=== PATIENT | male | born 1990 | race Two or more races ===

== ENCOUNTER 2024-10-05 10:39 | Emergency (ER) | payer MEDICAID, SELFPAY ==
[2024-10-05 10:40] VITALS: BMI 37.5
[2024-10-05 10:50] VITALS: BP 126/77; PULSE 74; RESP 19; TEMP 37.3; O2SAT 99
--- NOTE | 2024-10-05 10:56 | XR_ITS ---
Examination: PA lateral chest 2 views TECHNIQUE: Upright PA lateral chest 2 views Exam date and time: October 05, 2024 1105 hours Comparison August 18, 2022 INDICATIONS: Chest pain coughing today FINDINGS: Normal heart size Lungs are clear. The osseous structures are intact IMPRESSION: No active disease
--- NOTE | 2024-10-05 11:56 | EDNOTE_ITS ---
<Statement entered by Megan Billingsley MD - 10/13/24 16:19> As co-signing physician, I was present and available for consult prn. I concur with the plan and care as documented by the midlevel provider. Upper Respiratory Inf. RME/HPI General Chief Complaint: Flu Like Symptoms Stated Complaint: I THINK I HAVE BRONCHITIS Time Seen by Provider: 10/05/24 10:50 Arrival date/time: 10/05/24 10:39 34-year-old male with no significant medical problems presents to the emergency department today complaints of cough, congestion, body aches and fever patient for symptoms ongoing for the last couple of days patient does report positive sick contacts Limitations: no limitations Related Data Previous Rx's ?Medication ?Instructions ?Recorded albuterol sulfate 90 mcg/actuation 2 inh inhalation Q4H PRN shortness 08/18/22 aerosol inhaler (ProAir HFA) of breath or wheezing #8.5 grams codeine 10 mg-guaifenesin 200 mg/5 5 ml PO Q6H PRN cough #118 mL 08/18/22 mL oral liquid promethazine-DM 6.25 mg-15 mg/5 mL 5 ml PO Q6H PRN cough #473 mL 08/18/22 oral syrup albuterol sulfate 90 mcg/actuation 2 puff inhalation Q6H PRN 10/05/24 aerosol inhaler (Ventolin HFA) shortness of breath or wheezing #8.5 grams benzonatate 100 mg capsule 100 mg PO TID #14 caps 10/05/24 ibuprofen 800 mg tablet 800 mg PO TID PRN pain #30 tabs 10/05/24 Allergies Allergy/AdvReac Type Severity Reaction Status Date / Time No Known Allergies Allergy Verified 10/05/24 10:43 Review of Systems Review of Systems Systems Reviewed: All systems reviewed, normal except as documented Constitutional Constitutional: Reports system reviewed and no additional complaints, except as documented, Reports body ache(s), Reports chills, Reports fever(s) and Reports headache(s) Eyes Eyes: Reports system reviewed and no additional complaints, except as documented and Denies blurry vision ENT Ears, Nose, Mouth, and Throat: Reports system reviewed and no additional complaints, except as documented, Reports headache(s), Reports nasal congestion and Reports nasal discharge Cardiovascular Cardiovascular: Reports system reviewed and no additional complaints, except as documented, Denies chest pain and Denies dyspnea Respiratory Respiratory: Reports system reviewed and no additional complaints, except as documented, Denies chest congestion, Denies cough and Denies dyspnea Gastrointestinal Gastrointestinal: Reports system reviewed and no additional complaints, except as documented and Denies abdominal pain Integumentary/Breasts Skin/Breast: Reports system reviewed and no additional complaints, except as documented and Denies rash Neurologic Neurologic: Reports system reviewed and no additional complaints, except as documented, Reports as per HPI and Reports headache(s) Past Medical History Past Medical History NEUROLOGIC: Negative Neurological Disorders CARDIAC: Negative Cardiac Disorders ED Exam General Limitations: Present no limitations General appearance: Present alert and in no apparent distress Head Head exam: Present atraumatic Eye Eye exam: Present normal appearance, PERRL and EOMI; Absent conjunctival injection ENT ENT exam: Present normal exam, normal oropharynx and mucous membranes moist Neck Neck exam: Present normal inspection, full ROM and trachea midline Chest Chest inspection: Present normal inspection and symmetric chest wall rise Respiratory Respiratory exam: Present normal lung sounds bilaterally; Absent respiratory distress Cardiovascular Cardiovascular exam: Present regular rate, normal rhythm and normal heart sounds Abdominal Exam Abdominal exam: Present soft and normal bowel sounds; Absent distention, tenderness, guarding, rebound or rigidity Extremities Exam Extremities exam: Present normal inspection and full ROM Back Exam Back exam: Present normal inspection and full ROM Neurological Exam Neurological exam: Present alert, oriented X3, CN II-XII intact, normal gait and reflexes normal; Absent motor sensory deficit Psychiatric Psychiatric exam: Present normal affect and normal mood Skin Skin exam: Present warm, dry, intact and normal color; Absent rash Course Quality Measures none Orders Category Date Time Status Bedside Influenza A&B Antigen Test NOW Care 10/05/24 10:51 Completed XR chest 2V Stat Exams 10/05/24 10:56 Completed Vital Signs Vital signs: Vital Signs Temperature 99.1 F 10/05/24 10:50 Pulse Rate 74 10/05/24 10:50 Respiratory Rate 19 10/05/24 10:50 Blood Pressure 126/77 10/05/24 10:50 Pulse Oximetry (%) 99 10/05/24 10:50 Oxygen Delivery Method Room Air 10/05/24 10:50 O2 saturation 99% room air within normal limits Upper Respiratory Infection MDM Narrative MDM Narrative:: 34-year-old male with no significant medical problems presents to the emergency department today complaints of cough, congestion, body aches and fever patient for symptoms ongoing for the last couple of days patient does report positive sick contacts On exam patient well-appearing patient does not appear ill or toxic in no acute distress Patient checked for the flu which came back positive as suspected Chest x-ray obtained no acute pneumonic infiltrates noted Patient discharged home in no distress to follow-up with primary care doctor in the next 24 to 48 hours and for any worsening symptoms to return to the ER immediately Patient data External records reviewed:: [facility] previous records Clinical information provided by:: patient Social determinants that could affect healthcare access:: none Patient has the following chronic illnesses:: None How is presenting disease/condition affected by chronic disease/condition?: no chronic disease Evaluation data The following diagnostics were reviewed and interpreted by me:: lab results and radiology exam(s) Lab and/or radiology exams considered but not ordered:: Labs and radiology obtain Interpretation Summary: Reviewed by me Medications / Prescriptions Medications or Prescriptions considered but not ordered:: Given Medication administrations:: Given Consultations Consultation(s) initiated? (list below): No Diagnosis Upper Respiratory Differential Diagnosis: upper respiratory infection, sinusitis, viral infection, bronchitis and pharyngitis Most likely diagnosis given after review of the tests above:: Influenza Admission Indicated Admission indicated?: not indicated Admission Request Was there a request for admission?: No Disposition Plan Disposition Plan: Discharge Discharge Attestation Discharge Attestation: The patient and all family members were given an opportunity to ask questions and understood the discharge instructions. Discharge instructions specifically effects, indications for sooner follow up or return to the emergency department, and the expected course of current diagnosis. Patient condition: Stable Discharge Plan Plan Patient Disposition: HOME (Self Care) Disposition Comment: Stable Prescriptions/Referrals Prescriptions/Med Rec: New benzonatate 100 mg capsule 100 mg PO TID Qty: 14 0RF ibuprofen 800 mg tablet 800 mg PO TID PRN (Reason: pain) Qty: 30 0RF albuterol sulfate [Ventolin HFA] 90 mcg/actuation HFA aerosol inhaler 2 puff inhalation Q6H PRN (Reason: shortness of breath or wheezing) Qty: 8.5 0RF No Action codeine-guaifenesin 10-200 mg/5 mL liquid 5 ml PO Q6H PRN (Reason: cough) Qty: 118 0RF albuterol sulfate [ProAir HFA] 90 mcg/actuation HFA aerosol inhaler 2 inh inhalation Q4H PRN (Reason: shortness of breath or wheezing) Qty: 8.5 0RF promethazine-DM 6.25-15 mg/5 mL syrup 5 ml PO Q6H PRN (Reason: cough) Qty: 473 0RF Problem List Clinical Impression: Flu Patient/Caregiver Discharge Instructions Education Materials: ED URI, Viral, No Abx (Adult) Additional Instructions: Please follow up with your primary care doctor in the next 24-48hrs for any worsening symptoms return here immediately Print Language: [place] Stand Alone Forms: Betsy Award Info., Work/School Release, Patient Portal Info Letter PA/DRYWALL HANGER FRAMER Supervising Physician PA/DRYWALL HANGER FRAMER Supervising Physician: Dr BILLINGSLEY
== END 2024-10-05 12:05 | disposition home or self-care (01) ==
LOC: SERX 13:21
PROVIDERS: Emergency Provider Emergency Medicine
DX: J11.1 Influenza due to unidentified influenza virus with other respiratory manifestations (principal)
CPT/HCPCS: 71046; 87400; 99283

== ENCOUNTER → 2025-02-01 | Outpatient (CLI) | payer MEDICAID, SELFPAY ==
--- NOTE | 2025-02-01 16:05 | XR_ITS ---
Examination: CT soft tissue neck, without intravenous contrast. 2-D coronal reconstructions. 2-D sagittal reconstructions. Date and time of exam :February 01, 2025 1648 hours INDICATIONS: Right facial and ear pain and headache 2 weeks. CTDI: vol (mGy):15.4 DLP: (mGycm):410 Technique: 1.25 mm axial sections of the neck of the obtained. Coronal and sagittal reconstructions have been obtained. I Low dose protocols were performed. One or more of the following dose reduction techniques were used; automated exposure control, adjustment of the mA and/or KV according to patient size, use of iterative reconstruction technique. Findings: Symmetrical optic globes Acute right maxillary sinusitis Symmetrical nasopharynx oropharynx Symmetrical parotid and submandibular glands No pathologic lymphadenopathy Negative for mastoiditis Symmetrical internal auditory canals Negative for otitis media or otitis externa Normal epiglottis IMPRESSION: Acute right maxillary sinusitis Negative for mastoiditis Negative for otitis media, negative for otitis externa
--- NOTE | 2025-02-01 16:05 | XR_ITS ---
Examination: CT brain head without contrast. 2-D sagittal coronal reconstructions Date and time of exam:February 01, 2025 1648 hours INDICATIONS: Right ear and lateral mastoid pain and head pain beginning 2 weeks ago CTDI: vol (mGy):51.96 DLP: (mGycm):1106 Technique: Multiple CT axial sections of the brain have been obtained, 5 mm slice thickness. Contrast has not been administered. 2-D sagittal, coronal reconstructions have been obtained Low dose protocols were performed. One or more of the following dose reduction techniques were used; automated exposure control, adjustment of the mA and/or KV according to patient size, use of iterative reconstruction technique. Findings: No significant ventricular enlargement. Intra-axial or extra-axial hemorrhage density is not seen. No mass effect or midline shift Basal cisterns are not remarkable. Fourth ventricle is midline. Cranial vault intact. Impression: Negative for acute hemorrhage, mass effect or midline shift Acute right maxillary sinusitis Negative for acute mastoiditis Negative for otitis media
== END | disposition home or self-care (01) ==
PROVIDERS: PCP Nurse Practitioner Family; Referring Provider Nurse Practitioner Family; Visit Provider Nurse Practitioner Family
DX: J01.00 Acute maxillary sinusitis, unspecified (principal)
CPT/HCPCS: 70450; 70490

== ENCOUNTER 2025-03-31 07:56 | Emergency (ER) | payer MEDICAID, SELFPAY ==
[2025-03-31 08:05] VITALS: BP 115/77; PULSE 71; RESP 16; TEMP 36.4; O2SAT 98; BMI 32.0
--- NOTE | 2025-03-31 08:18 | XR_ITS ---
Examination: Ribs, right, with PA chest, 5 views Technique: Chest PA, RIBS AP, RPO, LPO, AP coned lower ribs 5 views Exam date and time: March 31, 2025, 0852 hours INDICATIONS: Patient fell 3 days ago with injury to the right chest, right rib pain Findings: Normal heart size No pneumothorax No acute rib fractures IMPRESSION: No pneumothorax pulmonary contusion or hemothorax No acute rib fractures
--- NOTE | 2025-03-31 08:19 | PD.EDFALL ---
ED Fall Injury RME/HPI General Chief Complaint: Fall Stated Complaint: Right side injury on Thursday, SOB Time Seen by Provider: 03/31/25 08:07 Source: patient Arrival date/time: 03/31/25 07:56 34-year-old male with no known medical history presents to the emergency room with a chief complaint of tenderness and pain to his right ribs after a ground-level fall that occurred Thursday. Mode of arrival: ambulatory Limitations: no limitations Related Data Previous Rx's ?Medication ?Instructions ?Recorded albuterol sulfate 90 mcg/actuation 2 inh inhalation Q4H PRN shortness 08/18/22 aerosol inhaler (ProAir HFA) of breath or wheezing #8.5 grams codeine 10 mg-guaifenesin 200 mg/5 5 ml PO Q6H PRN cough #118 mL 08/18/22 mL oral liquid promethazine-DM 6.25 mg-15 mg/5 mL 5 ml PO Q6H PRN cough #473 mL 08/18/22 oral syrup albuterol sulfate 90 mcg/actuation 2 puff inhalation Q6H PRN 10/05/24 aerosol inhaler (Ventolin HFA) shortness of breath or wheezing #8.5 grams benzonatate 100 mg capsule 100 mg PO TID #14 caps 10/05/24 ibuprofen 800 mg tablet 800 mg PO TID PRN pain #30 tabs 10/05/24 Allergies Allergy/AdvReac Type Severity Reaction Status Date / Time No Known Allergies Allergy Verified 03/31/25 08:00 Review of Systems Review of Systems Systems Reviewed: All systems reviewed, normal except as documented Constitutional Constitutional: Reports system reviewed and no additional complaints, except as documented, Denies fatigue, Denies fever(s), Denies headache(s) and Denies weakness Eyes Eyes: Reports system reviewed and no additional complaints, except as documented, Denies blurry vision and Denies change in vision ENT Ears, Nose, Mouth, and Throat: Reports system reviewed and no additional complaints, except as documented, Denies otalgia, Denies headache(s), Denies nasal congestion, Denies throat swelling and Denies vertigo Cardiovascular Cardiovascular: Reports system reviewed and no additional complaints, except as documented, Denies chest pain, Denies dyspnea and Denies dyspnea on exertion Respiratory Respiratory: Reports system reviewed and no additional complaints, except as documented, Denies chest congestion, Denies cough, Denies dyspnea, Denies dyspnea on exertion and Denies wheezing Gastrointestinal Gastrointestinal: Reports system reviewed and no additional complaints, except as documented, Denies abdominal pain, Denies cramping, Denies nausea and Denies vomiting Genitourinary Genitourinary: Reports system reviewed and no additional complaints, except as documented, Denies dysuria and Denies hematuria Musculoskeletal Musculoskeletal: Reports system reviewed and no additional complaints, except as documented and Denies back pain Integumentary/Breasts Skin/Breast: Reports system reviewed and no additional complaints, except as documented and Denies wounds Neurologic Neurologic: Reports system reviewed and no additional complaints, except as documented, Denies confusion, Denies headache(s), Denies lack of coordination, Denies vertigo and Denies weakness Psychiatric Psychiatric: Reports system reviewed and no additional complaints, except as documented, Denies anxiety, Denies confusion, Denies depression, Denies paranoia, Denies suicidal ideation and Denies tactile hallucinations Endocrine Endocrine: Reports system reviewed and no additional complaints, except as documented and Denies fatigue Hematologic/Lymphatic Hematologic/Lymphatic: Reports system reviewed and no additional complaints, except as documented and Denies lymphadenopathy Allergic/Immunologic Allergic/Immunologic: Reports system reviewed and no additional complaints, except as documented, Denies throat swelling, Denies urticaria and Denies wheezing ED Exam General Limitations: Present no limitations General appearance: Present alert and in no apparent distress Head Head exam: Present atraumatic Eye Eye exam: Present normal appearance, PERRL and EOMI ENT ENT exam: Present normal exam, normal oropharynx and mucous membranes moist Neck Neck exam: Present normal inspection, full ROM and trachea midline Chest Chest inspection: Present normal inspection, symmetric chest wall rise and tenderness Expanded Chest Exam Trauma: Absent crepitus, laceration, abrasion, ecchymosis, wound, penetrating wound or surgical incision Breast: right: tenderness Respiratory Respiratory exam: Present normal lung sounds bilaterally; Absent respiratory distress, wheezes, stridor, accessory muscle use or prolonged expiratory phase Cardiovascular Cardiovascular exam: Present regular rate, normal rhythm and normal heart sounds Abdominal Exam Abdominal exam: Present soft and normal bowel sounds Extremities Exam Extremities exam: Present normal inspection and full ROM Back Exam Back exam: Present normal inspection and full ROM Neurological Exam Neurological exam: Present alert, oriented X3 and CN II-XII intact Psychiatric Psychiatric exam: Present normal affect and normal mood Skin Skin exam: Present warm, dry, intact and normal color Course Quality Measures none Orders Category Date Time Status XR ribs RT min 3V w CXR1V Stat Exams 03/31/25 08:18 Completed Ketorolac Inj [Toradol Inj] Med 03/31/25 08:18 Discontinued 30 mg IM X1 ONE Vital Signs Vital signs: Vital Signs Temperature 97.5 F 03/31/25 08:05 Pulse Rate 71 03/31/25 08:05 Respiratory Rate 16 03/31/25 08:05 Blood Pressure 115/77 03/31/25 08:05 Pulse Oximetry (%) 98 03/31/25 08:05 Oxygen Delivery Method Room Air 03/31/25 08:05 Fall MDM Narrative MDM Narrative:: 34-year-old male with no known medical history presents to the emergency room with a chief complaint of tenderness and pain to his right ribs after a ground-level fall that occurred Thursday. Patient is hemodynamically stable and in no apparent distress Physical examination shows tenderness and pain with palpation of the right sided ribs. This pain radiates to his scapular area. There is clear bilateral lung sounds with no wheezing stridor or any dullness. X-ray of the ribs and chest were completed and there is no pneumothorax hemothorax or any pulmonary contusions. There is no fractured ribs. Patient was discharged and educated to follow-up with primary care provider in the next 24 to 48 hours and return to the emergency room for any evidence of worsening signs or symptoms Patient data External records reviewed:: [facility] previous records Clinical information provided by:: patient Social determinants that could affect healthcare access:: none Patient has the following chronic illnesses:: No chronic illness How is presenting disease/condition affected by chronic disease/condition?: no chronic disease Evaluation data The following diagnostics were reviewed and interpreted by me:: lab results and radiology exam(s) Lab and/or radiology exams considered but not ordered:: Labs and radiology exams considered and ordered Interpretation Summary: X-ray ribs-Findings: Normal heart size No pneumothorax No acute rib fractures IMPRESSION: No pneumothorax pulmonary contusion or hemothorax No acute rib fractures Medications / Prescriptions Medications or Prescriptions considered but not ordered:: Medication given Medication administrations:: Medication Administration History Discontinued Medications Ketorolac Tromethamine (Ketorolac Inj 60 Mg/2 Ml Vial) 30 mg IM X1 ONE Stop: 03/31/25 08:19 Last Admin: 03/31/25 08:26 Dose: 30 mg Documented By: VG Medication given Consultations Consultation(s) initiated? (list below): No Diagnosis Fall Differential Diagnosis: other (Rib contusion/rib fracture/hemothorax/pneumothorax) Most likely diagnosis given after review of the tests above:: Rib contusion Admission Indicated Admission indicated?: not indicated Admission Request Was there a request for admission?: No Disposition Plan Disposition Plan: Discharge Discharge Attestation Discharge Attestation: The patient and all family members were given an opportunity to ask questions and understood the discharge instructions. Discharge instructions specifically effects, indications for sooner follow up or return to the emergency department, and the expected course of current diagnosis. Patient condition: Stable Discharge Plan Plan Patient Disposition: HOME (Self Care) Discharge Disposition comment: Stable Prescriptions/Referrals Prescriptions/Med Rec: No Action codeine-guaifenesin 10-200 mg/5 mL liquid 5 ml PO Q6H PRN (Reason: cough) Qty: 118 0RF albuterol sulfate [ProAir HFA] 90 mcg/actuation HFA aerosol inhaler 2 inh inhalation Q4H PRN (Reason: shortness of breath or wheezing) Qty: 8.5 0RF promethazine-DM 6.25-15 mg/5 mL syrup 5 ml PO Q6H PRN (Reason: cough) Qty: 473 0RF benzonatate 100 mg capsule 100 mg PO TID Qty: 14 0RF ibuprofen 800 mg tablet 800 mg PO TID PRN (Reason: pain) Qty: 30 0RF albuterol sulfate [Ventolin HFA] 90 mcg/actuation HFA aerosol inhaler 2 puff inhalation Q6H PRN (Reason: shortness of breath or wheezing) Qty: 8.5 0RF Referrals: eKlsie Savage NP [Primary Care Provider] - In 1 week Problem List Clinical Impression: Contusion of rib on right side Patient/Caregiver Discharge Instructions Education Materials: ED Contusion, Rib Additional Instructions: Please follow-up with your primary care provider in the next 24 to 48 hours There is no complications with your lungs. There is no broken ribs. For any evidence of worsening signs or symptoms return to the emergency room immediately Print Language: [place] Citizen Stand Alone Forms: Betsy Award Info., Patient Portal Info Letter PA/KNITTING MACHINE OPERATOR Supervising Physician JOSE/KNITTING MACHINE OPERATOR Supervising Physician: Dr. Joshua
[2025-03-31] MEDS: KETOROLAC INJ 60 MG/2 ML VIAL 30 MG IM (08:26)
== END 2025-03-31 10:20 | disposition home or self-care (01) ==
PROVIDERS: Emergency Provider Emergency Medicine; PCP Nurse Practitioner Family
DX: S20.211A Contusion of right front wall of thorax, initial encounter (principal); W18.30XA Fall on same level, unspecified, initial encounter
CPT/HCPCS: 71101; 96372; 99283; J1885